=== PATIENT | female | born 1970 | race African-American/Black ===

== ENCOUNTER 2022-04-03 15:03 | Outpatient (CLI) | payer OTHER | END 2022-04-03 15:04 | disposition home or self-care (01) | LOC: NAV RAD 15:03 | PROVIDERS: ATTEND Family Medicine | DX: Z02.71 Encounter for disability determination (principal); M25.561 Pain in right knee ==

== ENCOUNTER 2024-03-18 14:54 | Emergency (ER) | payer MEDICAID, MEDICARE, SELFPAY ==
[2024-03-18] MEDS ORDERED: Acetaminophen 325 MG TAB ONE (15:16)
== END 2024-03-18 16:06 | disposition home or self-care (01) ==
LOC: NAV ERS 14:54
DX: S39.012A Strain of muscle, fascia and tendon of lower back, initial encounter (principal); S30.0XXA Contusion of lower back and pelvis, initial encounter; I10 Essential (primary) hypertension; W01.0XXA Fall on same level from slipping, tripping and stumbling without subsequent striking against object, initial encounter; Y92.481 Parking lot as the place of occurrence of the external cause
CPT/HCPCS: 72100; 72220; 99283